=== PATIENT | female | born 1990 | race Caucasian/White ===

== ENCOUNTER 2018-06-19 05:30 | Inpatient (IN) | payer OTHER ==
[~2018-06-19] VITALS: Ht 160 cm; Wt 91.6 kg
[2018-06-19] VITALS (10 sets, daily range): BP systolic 105–121; BP diastolic 53–70; PULSE 58–87; RESP 16–20; Ht 160 cm; Wt 91.6 kg
[~2018-06-19 05:30] MED LIST: PREN1TAB62 PO
[2018-06-19] MEDS ORDERED: MISOPROSTOL 200 MCG TAB PR PRN ×2 (06:30→07:30)
[2018-06-19] MEDS ORDERED: OXYTOCIN 30 UNITS/LR 500 ML IV PRN (06:30)
[2018-06-19] MEDS ORDERED: CEFAZOLIN 2 GM/50 ML (PMX) 50 ML IVPB SCH (06:30)
[2018-06-19] MEDS ORDERED: CARBOPROST 250 MCG INJ IM PRN (06:30)
[2018-06-19] MEDS ORDERED: METHYLERGONOVINE 0.2 MG INJ IM PRN (06:30)
[2018-06-19] MEDS ORDERED: LACTATED RINGER'S 1,000 ML IV SCH (07:08)
--- NOTE | 2018-06-19 07:08 | HP ---
Date/Time of Note Date/Time of Note DATE: 06/19/18 TIME: 07:06 OB - History Hx of Present Free Text/Dictation 27 YO with EDC 06/24/2018 and IUP at 39.2 weeks with history of previous delivery x 2, who desires to have repeat delivery. I discussed with the patient the risks, benefits, indications, and alternatives of procedure including but not limited to risks of infection, bleeding, damage to other organs, bowel, bladder, hernia formation, scar formation, possibility of blood transfusion, possible need for emergency hysterectomy. She was allowed to ask questions. All her questions were answered. Informed consent has been obtained. Care: Good Care Ultrasounds: Normal mid trimester US Obstetrical Complications: None Medical Complications: None Past Family/Social History * Past Medical, Surgical, Family and Obstetric Histories reviewed from chart. OB Admission Exam Physical Exam HEENT: WNL Heart: Rhythm Normal Lungs: Clear, Equal Abdomen: WNL Extremities: Normal Reflexes: Normal Last 72 hours Lab Results CBC & BMP 06/19/18 06:30 OB Assessment/Plan Other Assessment: IUP at 39.2 weeks h/o C/S x 2 Plan: Section BRANDON MURILLO MD Jun 19, 2018 07:08
[2018-06-19] MEDS ORDERED: LANOLIN HPA 1 PKT TOP PRN (07:30)
[2018-06-19] MEDS ORDERED: NA PHOSPHATE/BIPHOS 133 ML ENEMA PR PRN (07:30)
[2018-06-19] MEDS ORDERED: OXYCODONE/ACETAMINOPHEN (5/325) TAB PO PRN ×2 (07:30)
[2018-06-19] MEDS ORDERED: morphine SULFATE/PF (10 MG/10 ML) INJ ONE (07:32)
[2018-06-19] MEDS ORDERED: FENTAnyl 50 MCG/ML VIAL ONE (07:32)
--- NOTE | 2018-06-19 07:36 | PREAC ---
Date/Time of Note Date/Time of Note DATE: 06/19/18 TIME: 07:35 Anesthesia Eval and Record Evaluation Time Pre-Procedure Interview DATE: 06/19/18 TIME: 07:35 Age 27 Sex female NPO: 8 hrs Preoperative diagnosis repeat c section Planned procedure repeat c section Past Medical History Past Medical History: None Surgery & Anesthesia Issues No known issue Meds Anticoagulation: No Beta Juan within 24 hr: No Reason Beta Juan not given: Pt. not on B-Juan Reported Medications Vit-Iron Fumarate-FA ( Vitamin Tablet) 1 Each Tablet, 1 TAB PO DAILY, TAB 09/06/15 Current Medications Lactated Ringer's 1,000 ml @ 125 mls/hr Q8H IV ; Start 06/19/18 at 06:26 Cefazolin Sodium/ Dextrose 50 ml @ 100 mls/hr ONCE IVPB ; Start 06/19/18 at 06:30 Oxytocin/Lactated Ringer's 500 ml @ 125 mls/hr POST IV ; Start 06/19/18 at 06:30 Oxytocin/Lactated Ringer's 500 ml @ 0 mls/hr ONCE PRN IV .VAGINAL BLEEDING; Start 06/19/18 at 06:30 Methylergonovine Maleate (Methergine) 0.2 mg ONCE PRN IM .VAGINAL BLEEDING; Start 06/19/18 at 06:30 Carboprost Tromethamine (Hemabate) 250 mcg ONCE PRN IM .VAGINAL BLEEDING; Start 06/19/18 at 06:30 Misoprostol (Cytotec) 1,000 mcg ONCE PRN TX .VAGINAL BLEEDING; Start 06/19/18 at 06:30 Lactated Ringer's 1,000 ml @ 125 mls/hr Q8H IV ; Start 06/19/18 at 07:08; Stop 06/19/18 at 11:07; Status UNV Oxycodone/ Acetaminophen (Percocet (5/ 325)) 1 tab Q4H PRN PO .PAIN 4-6; Start 06/19/18 at 07:30; Status UNV Oxycodone/ Acetaminophen (Percocet (5/ 325)) 2 tab Q4H PRN PO .PAIN 7-10; Start 06/19/18 at 07:30; Status UNV Ibuprofen (Motrin) 600 mg Q6 PO ; Start 06/19/18 at 12:00; Status UNV Simethicone (Mylicon) 160 mg Q8H PRN PO .GAS; Start 06/19/18 at 07:30; Status UNV Senna/Docusate Sodium (Senokot-S) 1 tab BID PO ; Start 06/19/18 at 09:00; Status UNV Sodium Biphosphate/ Sodium Phosphate (Fleet Enema) 133 ml DAILY PRN TX .CONSTIPATION; Start 06/19/18 at 07:30; Status UNV Lanolin (Lanolin Hpa) 1 applic BEDSIDE MEDICATION PRN TOP .NIPPLES; Start 06/19/18 at 07:30; Status UNV Diphtheria/ Tetanus/Acell Pertussis (Adacel) 0.5 ml ONCE ONCE IM* ; Start 06/22/18 at 09:00; Stop 06/22/18 at 09:01; Status UNV Measles/Mumps/ Rubella Vaccine Live (Mmr Ii Vaccine) 0.5 ml ONCE ONCE SC* ; Start 06/22/18 at 09:00; Stop 06/22/18 at 09:01; Status UNV Misoprostol (Cytotec) 1,000 mcg ONCE PRN TX .VAGINAL BLEEDING; Start 06/19/18 at 07:30; Status UNV Meds reviewed: Yes Allergies Coded Allergies: No Known Allergy (Unverified , 09/06/15) Allergies Reviewed: Yes Labs/Studies Labs Reviewed: Reviewed by anesthesiologist Result Diagram: 06/19/18 0630 Laboratory Tests 06/19/18 06:30 Blood Bank Test 06/19/18 06:30 06/19/18 07:08 Blood Type B POSITIVE Rh Immune Globulin Candidate NO Blood Product Summary Counts test: N/A Pre-procedure Exam Airway: Adequate mouth opening, Adequate thyromental dist Mallampati: Mallampati III Teeth: Normal Lung: Normal Heart: Normal ASA Physical Status ASA physical status: 2 Emergency: None Pre-operative Attestations Prior to commencing anesthesia and surgery, the patient was re-evaluated, there was verification of: *The patient's identity *The results of appropriate recent lab work and preoperative vital signs *The above evaluation not changing prior to induction *Anesthetic plan, risk benefits, alternative and complications discussed with patient/family; questions answered; patient/family understands, accepts and wishes to proceed. JOSEPHINE EARL DO Jun 19, 2018 07:36
[2018-06-19] MEDS ORDERED: PHENYLephrine (100 MCG/ML) 5ML SYG ONE ×2 (07:53→08:15)
[2018-06-19] MEDS ORDERED: DEXAMETHASONE 4 MG/ML 1 ML INJ ONE (08:01)
[2018-06-19] MEDS ORDERED: ONDANSETRON 4 MG INJ ONE (08:01)
[2018-06-19] MEDS ORDERED: FAMOTIDINE 20 MG INJ ONE (08:01)
--- NOTE | 2018-06-19 08:53 | PAC ---
Date/Time of Note Date/Time of Note DATE: 06/19/18 TIME: 08:52 Post-Anesthesia Notes Post-Anesthesia Note Last documented vital signs 0850 126/65/65 72 100% 18 Activity: WNL Respiratory function: WNL Cardiovascular function: WNL Mental status: Baseline Pain reasonably controlled: Yes Hydration appropriate: Yes Nausea/Vomiting absent: Yes JOSEPHINE EARL DO Jun 19, 2018 08:53
[2018-06-19] MEDS ORDERED: DIPHENHYDRAMINE 50 MG INJ IV PRN (09:00)
[2018-06-19] MEDS ORDERED: HYDROmorphONE 0.5 MG/0.5 ML SYG IV PRN ×2 (09:00)
[2018-06-19] MEDS ORDERED: NALOXONE (0.4 MG/ML) INJ IV PRN (09:00)
[2018-06-19] MEDS ORDERED: KETOROLAC 30 MG INJ IV PRN (09:00)
[2018-06-19] MEDS ORDERED: ZOLPIDEM 5 MG TAB PO PRN (09:00)
--- NOTE | 2018-06-19 09:08 | OPR ---
Date/Time of Note Date/Time of Note DATE: 06/19/18 TIME: 09:03 Operative Report Procedure Date: Jun 19, 2018 Preoperative Diagnosis IUP at 39.2 weeks h/o previous delivery x 2 Postoperative Diagnosis Same Operation/Procedure Performed Repeat Delivery Surgeon Jannie Medley MD Sander Setter Alex Gonzalez MD Anesthesia Type: spinal Anesthesiologist: JOSEPHINE EARL DO Estimated Blood Loss: other (700) Transfusion none Specimen none Grafts/Implants none Tubes/Drains Chu Cath Complications none Pt Condition Post Procedure: stable Disposition: PACU Procedure Description The risks, benefits, indications, alternatives of procedure including, but not limited to risk of infection, bleeding, damage to other organs, bowel, bladder, hernia formation, scar formation, possibility of blood transfusions were discussed with patient. She was allowed to ask questions. All her questions were answered. Informed consent was obtained. DESCRIPTION OF PROCEDURE: She was taken to the operating room. Spinal anesthesia was induced. She was prepped and draped in the usual sterile fashion. Surgical time out one. Anesthesia was tested to be adequate. With permission from anesthesiologist, a knife was used to make a Pfannenstiel skin incision. The incision was taken down in layers. The fascia was cut, undermined and from the underlying muscle using sharp and blunt dissection. All the bleeders were cauterized. Peritoneum was entered bluntly. A low transverse incision was developed over the uterus. Amniotic fluid was clear and adequate. A viable infant in vertex presentation was delivered without any difficulty. The cord was clamped and cut, handed to awaiting team. Placenta was then delivered. Uterus was exteriorized, wrapped around a moist lap. Inside uterus was cleaned using a dry lap. All residual membranes were removed. The uterine incision was then closed using #1 Monocryl in 2 layers. The uterus was inserted back inside the abdominal cavity. Irrigation was done carefully. Careful evaluation of the uterine incision revealed no further bleeding. The peritoneum and rectus muscles and fascia were evaluated. All bleeders cauterized. Peritoneum was closed using 2-0 Monocryl. At this time, the count was correct. Rectus muscle was reapproximated using 2-0 Monocryl. Rectus fascia was closed using #1 Vicryl. Subcutaneous tissue was cleaned and irrigated. All bleeders cauterized and the skin closed using Insorb. All counts correct. JANNIE MEDLEY MD Jun 19, 2018 09:08
[2018-06-19] MEDS: OXYTOCIN 30 UNITS/LR 500 ML IV SCH ×3 (10:05→19:59)
[2018-06-19] MEDS: IBUPROFEN 600 MG TAB PO SCH ×2 (12:00→19:30)
[2018-06-19] MEDS: LACTATED RINGER'S 1,000 ML IV SCH ×3 (12:09→23:41)
[2018-06-19] MEDS: SENNA/DOCUSATE NA (8.6MG/50MG) TAB PO SCH ×2 (12:09→22:29)
[2018-06-20 03:26] VITALS: BP 120/59; PULSE 76; RESP 18
[2018-06-20] MEDS: IBUPROFEN 600 MG TAB PO SCH ×5 (06:00→23:46)
[2018-06-20] MEDS: LACTATED RINGER'S 1,000 ML IV SCH (06:12)
--- NOTE | 2018-06-20 07:52 | QN ---
Documentation Comment s/p c/s Subjective: no complaint Objective: Afebrile, VSS NAD A&O Abdomen: soft, appropriate tender Incision: no sign of bleeding/infection mild lochia Extremity: 1+ edema bilaterally Assessment: S/p C/S. POD # 1 Recovering Well Plan: current care BRANDON MURILLO MD Jun 20, 2018 07:52
[2018-06-20 08:00] VITALS: BP 124/73; PULSE 70; RESP 17
[2018-06-20] MEDS: SENNA/DOCUSATE NA (8.6MG/50MG) TAB PO SCH ×2 (09:04→20:51)
[2018-06-20 16:00] VITALS: BP 111/70; PULSE 85; RESP 17
[2018-06-20 20:45] VITALS: BP 120/76; PULSE 86; RESP 18
[2018-06-21 03:30] VITALS: BP 96/52; PULSE 83; RESP 18
[2018-06-21] MEDS: IBUPROFEN 600 MG TAB PO SCH ×2 (05:46→11:50)
[2018-06-21] MEDS ORDERED: DIPHTH/TET/ACEL PERTUSS (ADULT) 0.5 ML VIAL IM* ONE (08:30)
[2018-06-21] MEDS: SENNA/DOCUSATE NA (8.6MG/50MG) TAB PO SCH (09:00)
--- NOTE | 2018-06-21 11:08 | DS ---
Date/Time of Note Date/Time of Note DATE: 06/21/18 TIME: 11:06 Obstetrical Discharge Record Final Diagnosis Final Diagnosis: Term delivered Other Final Diagnosis she had anemia on admission. she has more anemia now. she denies anemia sxs. she is aware that she needs to take Fe BID. she has home supply. + Flatus. tolerating diet. good pain control Section Section: Repeat Complications Augmentation: No Induction: No Rupture of Membranes: No Condition on Discharge Physical Assessment Voiding: Yes Bowel Movement: Yes Breast: Soft, non-tender, Filling Fundus: Firm Abdomen and Incision: soft, appropriate tender. incision is without any sign of infection Calf Tenderness: No Patient Condition: Good BRANDON MURILLO MD Jun 21, 2018 11:08
[2018-06-22] MEDS ORDERED: DIPHTH/TET/ACEL PERTUSS (ADULT) 0.5 ML VIAL IM* ONE (09:00)
[2018-06-22] MEDS ORDERED: MEASLES,MUMPS,RUBELLA VACCINE INJ SC* ONE (09:00)
== END 2018-06-21 13:05 | disposition home or self-care (01) | DRG 788 ==
LOC: L-D 05:30 → PP1 11:25
PROVIDERS: ADMIT Specialist; ATTEND Specialist
PROC: 4A1HXCZ Monitoring of Products of Conception, Cardiac Rate, External Approach (ICD-10-PCS; 2018-06-19)
PROC: 10D00Z1 Extraction of Products of Conception, Low, Open Approach (ICD-10-PCS; principal; 2018-06-19 07:30)
PROC: 3E0234Z Introduction of Serum, Toxoid and Vaccine into Muscle, Percutaneous Approach (ICD-10-PCS; 2018-06-21)
DX: O34.219 Maternal care for unspecified type scar from previous cesarean delivery (principal); O99.02 Anemia complicating childbirth; Z3A.39 39 weeks gestation of pregnancy; Z37.0 Single live birth; Z23 Encounter for immunization
CPT/HCPCS: 85025; 85610; 85730; 86592; 86850; 86900; 86901; 87340; 90715; 99464; J0690; J1100; J1885; J2274; J2370; J2405; J2590; J3010; J7120